=== PATIENT | male | born 1975 | race Caucasian/White ===

== ENCOUNTER 2021-07-21 12:20 | Emergency (ER) | payer MEDICAID ==
[~2021-07-21] VITALS: Ht 165.1 cm; Wt 131.4 kg
[2021-07-21 12:55] VITALS: BP 166/102
[2021-07-21] MEDS ORDERED: ALBU6.7H9 INH (12:59)
[2021-07-21] MEDS ORDERED: BUDE180A INH (12:59)
[2021-07-21] MEDS ORDERED: AZIT500T PO (12:59)
[2021-07-21] MEDS ORDERED: IPRA3AMP31 IH (12:59)
[2021-07-21] MEDS ORDERED: DEXA6TAB6 PO (12:59)
== END 2021-07-21 13:13 | disposition home or self-care (01) ==
LOC: ER 12:21
DX: U07.1 COVID-19 (principal); J12.82 Pneumonia due to coronavirus disease 2019; J44.9 Chronic obstructive pulmonary disease, unspecified; R11.0 Nausea; R05.9 Cough, unspecified; R06.02 Shortness of breath; R19.7 Diarrhea, unspecified; Z79.2 Long term (current) use of antibiotics; Z79.899 Other long term (current) drug therapy
CPT/HCPCS: 36415; 71045; 99284; U0003; U0005